=== PATIENT | male | born 1965 | race Caucasian/White ===

== ENCOUNTER 2024-06-08 07:45 | Inpatient (IN) ==
--- NOTE | 2024-05-26 15:40 | PAT Medication Instructions ---
Medication Instructions Date of Service May 26, 2024 Home Medications atorvastatin 40 mg tablet (Lipitor) 40 mg PO QAM celecoxib 200 mg capsule (Celebrex) 200 mg PO BID cyclobenzaprine 5 mg tablet 5 mg PO HS losartan 50 mg tablet 50 mg PO QAM metformin 500 mg tablet 500 mg PO BID omeprazole 20 mg capsule,delayed release 20 mg PO QAM oxycodone-acetaminophen 5 mg-325 mg tablet 1 - 2 tab PO HS PRN Pain ASK your surgeon for instructions celecoxib 200 mg capsule (Celebrex) 200 mg PO BID DO NOT take the morning of surgery losartan 50 mg tablet 50 mg PO QAM metformin 500 mg tablet 500 mg PO BID Take morning of surgery With a small sip of water, OTHERWISE NOTHING TO EAT OR DRINK AFTER MIDNIGHT: atorvastatin 40 mg tablet (Lipitor) 40 mg PO QAM omeprazole 20 mg capsule,delayed release 20 mg PO QAM Take evening before surgery cyclobenzaprine 5 mg tablet 5 mg PO HS metformin 500 mg tablet 500 mg PO BID oxycodone-acetaminophen 5 mg-325 mg tablet 1 - 2 tab PO HS PRN Pain (if needed) Other Notes If you have any questions please call us at [phone] or [phone] or [phone] or [phone]
--- NOTE | 2024-05-31 11:56 | Anesthesiology Consultation ---
Date of Service May 31, 2024 Assessment & Plan (1) Encounter for pre-operative examination: - A1c elevated at 9.1%, medical clearance is needed per discussion with Dr. Joya. Optimization form and PAT testing to be faxed to Dr. Otsi Lehman. Patient and surgeon's office made aware. - check BSG am DOS. Chart Review Chart Review: Pending: Refer to Additional Notes / Consult section and Patient seen in Pre Admission Testing Teaching & Discussion Pre-Anesthesia Teaching/Discussion Notes: Instructed NPO after midnight before surgery, except medications with 15 cc of water. Medication instructions provided according to the PAT guidelines. History Surgery Operation Date: 06/08/24 11:55 Proposed Procedures p L3-L4 Decompression and Fusion, Spinal Cord Monitoring - Alfonso Loving DO Height/Weight Height: 5 ft 8 in Weight: 98.3 kg Allergies Allergy/AdvReac Type Severity Reaction Status Date / Time No Known Allergies Allergy Verified 05/26/24 14:48 Medications Home Medications Medication Instructions Recorded Confirmed Last Taken atorvastatin 40 mg tablet (Lipitor) 40 mg PO QAM 05/26/24 05/26/24 Unknown celecoxib 200 mg capsule (Celebrex) 200 mg PO BID 05/26/24 05/26/24 Unknown cyclobenzaprine 5 mg tablet 5 mg PO HS 05/26/24 05/26/24 Unknown losartan 50 mg tablet 50 mg PO QAM 05/26/24 05/26/24 Unknown metformin 500 mg tablet 500 mg PO BID 05/26/24 05/26/24 Unknown omeprazole 20 mg capsule,delayed 20 mg PO QAM 05/26/24 05/26/24 Unknown release oxycodone-acetaminophen 5 mg-325 1 - 2 tab PO HS PRN Pain 05/26/24 05/26/24 Unknown mg tablet Past Medical History Medical History (Updated 05/31/24 @ 11:58 by Janis Ricardo PA-C) Diabetes NIDDM Dyslipidemia GERD (gastroesophageal reflux disease) controlled, stable per pt History of COVID-19 (2022) no hosp; resolved HTN (hypertension) controlled, stable per pt Hx of pneumothorax spontaneous pneumo when pt was in ; patient states it was repaired surgically Lumbar back pain Sleep apnea CPAP-compliant Patient denies h/o stroke, seizures, heart attack, heart failure, blood clots/DVTs or blood transfusions. Exercise / Class Metabolic Activity III < 4 Walking/Shop/Light housework (denies chest discomfort or shortness of breath with usual activities) Past Surgical History Surgical History (Updated 05/31/24 @ 11:58 by Janis Ricardo PA-C) History of laparoscopy -- states had a procedure for GERD; it was a "banding" done laparoscopically History of surgery Hx of colonoscopy Past Anesthesia History No Hx of Anesthesia Complications and No Family Hx of Anesthesia Complications History of PONV No Hx of PONV and No Hx of Motion Sickness Social History Smoking Status: Current every day smoker Smoking cigarettes per day: 20 per day- advised Do You Dip or Chew Tobacco: No Hx Alcohol Use: No Hx Substance Use: No substance use type: does not use Review of Systems Patient denies chest pain, shortness of breath, dyspnea on exertion, fever, chills, cough, wheezing, or palpitations. Physical Exam Vital Signs Vitals BP 151/77 P 90 TEMP 98.4 SP02 96% on RA RESP 18 Physical Patient resting comfortably in chair in no acute distress, alert and oriented, responding appropriately throughout visit Full cervical extension range of motion without pain TMD 3.5 finger breadths Mallampati Score 2 Dentition: several broken teeth, denies loose teeth, caps/crowns, implants or bridges Lungs: normal respiratory effort. Good air movement, clear throughout to auscultation, no adventitious breath sounds Cardiac: regular rate and rhythm, no murmurs noted Carotid arteries: negative bruit bilat Lab Results Anesthesia Preop Results Results Anesthesia Widget: WBC 10.67 K/ul (4.8-10.8) 05/31/24 Hgb 16.5 g/dl (14.0-18.0) 05/31/24 Hct 48.6 % (42.0-52.0) 05/31/24 Plt 227 K/uL (130-400) 05/31/24 PT 10.0 Seconds (9.0-12.0) 05/31/24 PTT 25 Seconds (21-31) 05/31/24 INR 0.9 (0.9-1.1) 05/31/24 HA1c 9.1 % (4.5-5.6) H 05/31/24 Urine Color Yellow 05/31/24 Urine Appearance Clear (Clear) 05/31/24 Urine pH 6.0 (4.5-7.5) 05/31/24 Urine Specific [place] 1.021 (1.000-1.030) 05/31/24 Urine Protein Negative (Negative) 05/31/24 Urine Glucose (UA) 3+ (Negative) H 05/31/24 Urine Ketones Trace (Negative) H 05/31/24 Urine Blood Negative (Negative) 05/31/24 Urine Nitrite Negative (Negative) 05/31/24 Urine Bilirubin Negative (Negative) 05/31/24 Urine Urobilinogen Negative (Negative) 05/31/24 Urine Leukocyte Esterase Negative (Negative) 05/31/24 Blood Type AB Positive 05/31/24 Antibody Screen NEGATIVE 05/31/24 Testing Laboratory Results 04/28/24 SODIUM: 139 POTASSIUM: 4.3 CHLORIDE: 103 CO2: 22 BUN: 14 CREATININE: 0.8 GLUCOSE: 136 Electrocardiogram Date: 05/04/24 NSR, rate 82 bpm Chest X-Ray Date: 05/31/24 No acute process.
[2024-06-08] MEDS: GABAPENTIN 300 MG CAP PO SCH (08:24)
[2024-06-08] MEDS: LR 60ML/HR IV SCH (08:24)
[2024-06-08] MEDS: LR 15ML/HR IV SCH (08:24)
[2024-06-08] MEDS: CeleBREX 200 MG CAP PO SCH (08:24)
[2024-06-08] MEDS ORDERED: ATROPINE SULFATE 0.1 MG/ML 10ML SYR IV PRN (08:36)
[2024-06-08] MEDS ORDERED: ePHEDrine sulfate 50 MG/ML AMP IV PRN (08:36)
[2024-06-08] MEDS ORDERED: DROPERIDOL 5 MG/2 ML VIAL IV PRN (08:36)
[2024-06-08] MEDS: ACETAMINOPHEN 500 MG TAB PO STA (08:45)
--- NOTE | 2024-06-08 08:50 | History & Physical Bridge Note ---
Date of Service June 08, 2024 History & Physical Bridge Note I have examined the patient, reviewed the History & Physical and in the interval since the performance of the History & Physical I have noted the following changes of clinical significance: no changes noted
--- NOTE | 2024-06-08 08:51 | History & Physical Report ---
Date of Service June 08, 2024 Assessment & Plan (1) Lumbar disc herniation with radiculopathy: Plan: L3-L4 decompression and fusion History of Present Illness Chief Complaint: Back and leg pain Primary Care Provider: Otis Lehman MD This is a 58-year-old male presents with chronic persistent back and leg pain after failing course of nonoperative care is here for surgical invention. Allergies Allergy/AdvReac Type Severity Reaction Status Date / Time No Known Allergies Allergy Verified 06/08/24 08:03 Home Medications Medication Instructions Recorded Confirmed Type atorvastatin 40 mg tablet (Lipitor) 40 mg PO QAM 05/26/24 06/08/24 History celecoxib 200 mg capsule (Celebrex) 200 mg PO BID 05/26/24 06/08/24 History cyclobenzaprine 5 mg tablet 5 mg PO HS 05/26/24 06/08/24 History losartan 50 mg tablet 50 mg PO QAM 05/26/24 06/08/24 History metformin 500 mg tablet 500 mg PO BID 05/26/24 06/08/24 History omeprazole 20 mg capsule,delayed 20 mg PO QAM 05/26/24 06/08/24 History release oxycodone-acetaminophen 5 mg-325 1 - 2 tab PO HS PRN Pain 05/26/24 06/08/24 History mg tablet Past Med/Surg History Problem List (Updated 06/08/24 @ 08:51 by Alfonso Loving DO) Lumbar disc herniation with radiculopathy Encounter for pre-operative examination Medical History (Updated 06/08/24 @ 08:51 by Alfonso Loving DO) Lumbar back pain Hx of pneumothorax spontaneous pneumo when pt was in ; patient states it was repaired surgically History of COVID-19 (2022) no hosp; resolved Sleep apnea CPAP-compliant GERD (gastroesophageal reflux disease) controlled, stable per pt Dyslipidemia HTN (hypertension) controlled, stable per pt Diabetes NIDDM Surgical History History of surgery History of laparoscopy -- states had a procedure for GERD; it was a "banding" done laparoscopically Hx of colonoscopy Social History Smoking Status: Current every day smoker Tobacco Type: Cigarettes Cigarettes Per Day: 20 per day- advised; Second Hand Exposure: No; Do You Dip or Chew Tobacco: No; Tobacco Cessation Education Requested by Patient: No Hx Alcohol Use: No Hx Substance Use: No Preferred Language: Micronesian Communication Ability: Effective [employer] Counter Person Required: No Beliefs That Will Affect Care: None Current Living Situation: Significant Other Other Information That Helps Us Care for You: No Feels Safe at Home: Yes Safety Concerns: Feels Safe At This Time Assistive Devices: CPAP Physical Exam Physical Exam: Patient is alert and oriented Heart regular in rhythm Lungs clear Results & Data Results & Data Vital Signs (Past 12 Hours) Vital Signs Pulse Resp BP Pulse Ox O2 Del Method 06/08/24 08:07 Room Air 06/08/24 08:07 94 H 26 H 173/78 H 97 Room Air
[2024-06-08] MEDS ORDERED: MIDAZOLAM HCL 1 MG/ML 2ML VIAL ONE (09:07)
[2024-06-08] MEDS ORDERED: fentaNYL citrate PF 100 MCG/2 ML VIAL ONE (09:08)
[2024-06-08] MEDS ORDERED: PROPOFOL IV EMULSION 10 MG/ML 20 ML VIAL IV ONE (09:20)
[2024-06-08] MEDS ORDERED: ROCURONIUM BROMIDE 10 MG/ML 5 ML VIAL IV ONE ×4 (09:20→10:16)
[2024-06-08] MEDS ORDERED: LIDOCAINE 2% 20 MG/ML 5 ML SYR IV ONE (09:20)
[2024-06-08] MEDS ORDERED: KETAMINE HCL 10MG/ML SYR ONE (09:20)
[2024-06-08] MEDS: ceFAZolin 2000MG 2,000 MG/15 ML SYR IV SCH ×2 (09:30→17:12)
[2024-06-08] MEDS ORDERED: DEXAMETHASONE SOD INJ 4 MG/ML VIAL ONE (09:41)
[2024-06-08] MEDS: BUPIVACAINE/EPINEPHRINE 0.25% 1:200,000 30 ML VIAL ONE (09:58)
[2024-06-08] MEDS ORDERED: diphenhydrAMINE 50 MG/ML VIAL ONE (09:58)
[2024-06-08] MEDS ORDERED: ONDANSETRON INJ 2 MG/ML 2 ML VIAL ONE (09:58)
[2024-06-08] MEDS ORDERED: SUGAMMADEX SODIUM 200 MG/2 ML VIAL IV ONE (10:19)
[2024-06-08] MEDS: ceFAZolin 330 MG/ML 1 GM VIAL ONE (10:28)
[2024-06-08] MEDS: FLOSEAL HEMOSTATIC MATRIX 10ML TOP ONE (10:29)
--- NOTE | 2024-06-08 10:42 | Operative Report ---
Post Operative Report Pre & Post Diagnosis Operation Date: 06/08/24 09:10 Pre-Op Diagnosis: Lumbar Disc Herniation with Radiculopathy Post-Op Diagnosis: Lumbar Disc Herniation with Radiculopathy I identified the patient and participated in the time-out.: Yes Procedure Operation Date: 06/08/24 09:1, actual procedure: #1 lumbar decompression with medial facetectomies foraminotomies L3-L4. #2 posterior spinal fusion L3-L4. #3 placed posterior instrumentation L3-L4. #4 interbody fusion L3-L4. #5 this respire a 15 x 26 mm L3-L4 per #6 placement locally harvested morselized autograft posterior gutters. Over 7 placement of infuse collagen sponge, with corresponding graft in the posterior lateral gutters and Morpheus bone graft in the interbody space. #8 placement of versa wrap on the exposed dura. Surgeon Alfonso Loving, DO Oil Well Pumper Waleska Marshall Estimated Blood Loss 100 Findings See Below The patient is 5 foot 8 weighing over 90 kg and a BMI in excess of 32. Patient is already absent contribute to significant technical difficulty with positioning exposure and the procedure itself had at least 50% increased operative time. Specimens None Indications This is a 4-year-old male presents above his diagnosis of failed course of nonoperative care is here for surgical invention. Description of Procedure Patient met with identified informed consent obtained. Patient was then taken to the operative suite underwent intubation placed in a prone position on the Jose Alberto table without the Andre frame. All bony promises well-padded eyes inspected to ensure no external approximately Freda. This would lower size prepped and draped no sterile fashion. Sharp dissection with assistance of Bovie cautery performed down to and exposing the lamina and transverse processes of L3-L4. From caudal to cephalad fashion complete laminectomy of L3 was performed including bilateral medial facetectomies and foraminotomies addressing severe spinal stenosis. This included removal of massive foraminal disc herniation occupying the left neural foramen and extraforaminal space. After complete decompression by She was replaced L3-L4 bilaterally with assistance of fluoroscopy and the process maxwell placed. By way of a transforaminal approach on the left complete discectomy of L3-L4 was performed endplates got a distal cortical bleeding bone and a 15 x 26 mm Spira cage filled with Morpheus bone graft out the position. The rods were then compressed and locked into final position bilaterally. The transverse processes of L3-L4 protrusive cortical bleeding bone. Infuse collagen sponge, with gross and local autograft placed in posterior gutters. Versa wrap was placed along the exposed dura and a 15 round LALI drain inserted. Incision was then closed with 1 Vicryl and fascia 2-0 Vicryl subcutaneously and 4 Monocryl for final skin closure. Steri-Strips dressing young noah. Patient waken taken to PACU stable condition. Please note spinal cord monitoring was utilized at the procedure no changes noted. Waleska Marshall was present out the entire procedure and felt the patient positioning complex portion of the surgery and fascial closure. Im ordering 20 grams of [place] Collagen Powder (TxCell [id number]) to treat an incision wound that was caused by a spine procedure. The incision is approximately 2 cm(W) x 4 cm(L) into the joint (D) in size and is a full thickness wound. [place] collagen comes in 1 gram packets so 20 packets were ordered. Given the size of the wound, with light to moderate exudate I chose to order a 20 day supply. The patient will be provided instructions for proper application of the collagen wound kit. The patient will be asked to apply the collagen powder daily and then cover it with sterile dressings dispensed. Collagen was selected as I expect the collagen to attract monocytes and fibroblasts, act as a sacrificial substrate for MMPs, and ultimately proved a matrix for tissue and vessel growth. The collagen will act as a primary dressing in this scenario. It is medically necessary for proper healing of these wounds to improve bioavailability and contact with each wound surface, this is also to help prevent infection of wounds and promote healing ultimately leading to a better healing outcome and limit the risk of infection. I attest to the content of the Intraoperative Record and any orders documented therein. Any exceptions are noted below.
[2024-06-08] MEDS: HYDROmorphone INJ 2 MG/ML SYR/VIAL IV PRN ×2 (11:16→11:45)
--- NOTE | 2024-06-08 11:41 | Fluoroscopy Report ---
FL lumbar spine 2-3V CLINICAL HISTORY: L3-L4 DECOMPRESSION AND FUSION TECHNIQUE: 2 views were obtained with the C-arm in the OR with the above procedure. Total fluoroscopy time was 14.8 seconds. Radiation dose was 11.73 mGy. Comparison: None available at the time of this dictation. FINDINGS/IMPRESSION: Intraoperative images were obtained of L3-L4 decompression fusion. Please correlate with intraoperative fluoroscopy and operative report. ACT 112: Negative or not required by law. Electronically signed by: Edvin Hall M.D. 06/08/2024 11:39 AM
[2024-06-08] MEDS ORDERED: diphenhydrAMINE Capsule 25 MG CAP PO PRN (13:14)
[2024-06-08] MEDS ORDERED: PHARMACY GLYCEMIC MGMT CONSULT PRN (13:14)
[2024-06-08] MEDS ORDERED: METOCLOPRAMIDE HCL INJ 5 MG/ML 2 ML VIAL IV PRN (13:14)
[2024-06-08] MEDS ORDERED: hydrOXYzine HCl 25 MG TAB PO PRN (13:14)
[2024-06-08] MEDS ORDERED: PROMETHAZINE 12.5 MG/50.5 ML BAG IV PRN (13:14)
[2024-06-08] MEDS ORDERED: SOD PHOSPHATE/SOD BIPHOSPHATE ENEMA 132 ML BTL PR PRN (13:14)
[2024-06-08] MEDS ORDERED: DO NOT ADMINISTER FLU VACCINE PRN (13:14)
[2024-06-08] MEDS ORDERED: ONDANSETRON 4 MG OD TAB PO PRN (13:14)
[2024-06-08] MEDS ORDERED: DO NOT ADMINISTER PNEUMOCOCCAL VACCINE PRN (13:14)
[2024-06-08] MEDS ORDERED: MAGNESIUM HYDROXIDE SUSP 30 ML UDC PO PRN (13:14)
[2024-06-08] MEDS ORDERED: NALOXONE HCL 0.4 MG/1 ML VIAL/CARP IV PRN (13:14)
[2024-06-08] MEDS ORDERED: ALUMINUM/MAGNESIUM SUSP 30 ML UDC PO PRN (13:14)
[2024-06-08] MEDS ORDERED: HYDROmorphone INJ 0.5 MG/0.5 ML SYR IV PRN (13:14)
[2024-06-08] MEDS ORDERED: bisacodyL 10 MG SUPP PR PRN (13:14)
[2024-06-08] MEDS ORDERED: FAMOTIDINE 20 MG TAB PO PRN (13:14)
[2024-06-08] MEDS ORDERED: ACETAMINOPHEN 500 MG TAB PO PRN (13:14)
[2024-06-08] MEDS ORDERED: ONDANSETRON INJ 2 MG/ML 2 ML VIAL IV PRN (13:14)
[2024-06-08] MEDS: HYDROmorphone INJ 2 MG/ML SYR/VIAL ONE (13:23)
--- NOTE | 2024-06-08 13:26 | Anesthesiology Progress Note ---
Date of Service June 08, 2024 Anesthesia Post Procedure Vital Signs Vital Signs: Temp Pulse Pulse Resp BP BP Pulse Ox 06/08/24 12:45 94 H 16 159/81 H 96 06/08/24 12:30 37.1 C 96 H 15 157/78 H 96 06/08/24 12:20 103 H 14 139/88 97 06/08/24 12:10 96 H 13 153/82 H 95 06/08/24 12:00 96 H 16 157/88 H 97 06/08/24 11:50 93 H 16 163/105 H 97 06/08/24 11:40 97 H 12 171/87 H 98 06/08/24 11:35 101 H 18 181/96 H 100 06/08/24 11:25 98 H 17 163/92 H 94 06/08/24 11:15 95 H 15 157/76 H 95 06/08/24 11:07 36.6 C 100 H 16 152/70 H 95 06/08/24 08:07 06/08/24 08:07 94 H 26 H 173/78 H 97 O2 Del Method O2 Flow Rate 06/08/24 12:45 Nasal Cannula 3 06/08/24 12:30 Nasal Cannula 3 06/08/24 12:20 Nasal Cannula 3 06/08/24 12:10 Nasal Cannula 3 06/08/24 12:00 Nasal Cannula 3 06/08/24 11:50 Nasal Cannula 3 06/08/24 11:40 Nasal Cannula 3 06/08/24 11:35 Oxymask 10 06/08/24 11:25 Oxymask 10 06/08/24 11:15 Oxymask 10 06/08/24 11:07 Oxymask 10 06/08/24 08:07 Room Air 06/08/24 08:07 Room Air Pain Intensity Back: Pain Intensity: 10 Transfer of Care Handoff Completed per policy Notes Mental Status: alert / awake / arousable and participated in evaluation Nausea / Vomiting: adequately controlled Pain: adequately controlled Airway Patency, RR, SpO2: stable & adequate BP & HR: stable & adequate Hydration State: stable & adequate Anesthetic Complications: no major complications apparent and Pt Satisfied with anesthetic care
[2024-06-08] MEDS: oxyCODONE HCL IR 5 MG TAB (IMMEDIATE RELEASE) PO PRN (13:28)
--- NOTE | 2024-06-08 13:32 | Consultation ---
Date of Consultation June 08, 2024 Assessment & Plan (1) Lumbar disc herniation with radiculopathy: (2) Status post lumbar surgery: Post op day# 0 S/P L3-L4 decompression and fusion by Dr Fabienne BOTELLO#100ml Pain management per ortho Wound management per ortho PT/OT as appropriate DVT prophylaxis per ortho, SCDs Incentive spirometry Monitor H&H for acute blood loss anemia; Pre-op Hgb: 16.5 per chart review (3) Diabetes mellitus, type II: A1c: 9.1 on 05/31/24, Was 7.9 on 02/03/24 Hold home metformin. Patient previously on Trulicity however states has been unable to get from pharmacy Glycemic pharmacist on board, appreciate glycemic management (4) HTN (hypertension): BP: 161/77 Dose home losartan now and continue daily (5) Dyslipidemia: Continue atorvastatin (6) COPD (chronic obstructive pulmonary disease): No signs exacerbation Continue home inhaler Albuterol neb prn (7) JUSTYN (obstructive sleep apnea): CPAP HS (8) Tobacco use: Nicotine patch Smoking cessation encouraged DVT Prophylaxis SCDs Follows with Dr Dominik GRAY for routine care Pt was seen and care coordinated with Dr Wise. See addendum Thank you for this consultation. We will follow the patient with you during their hospital stay. You can reach a member of the [facility] Hospitalist Team 25/05 via [facility] Supervising Physician Co-Signing Physician Notes delayed entry date of service noted above Attending Addendum: Case reviewed with the advanced practitioner. I have personally performed a history and physical examination on the patient. I have reviewed the advanced practitioner's documentation on the date of service referenced in note, and I agree with, and take responsibility for the plan of care. please refer to her notes for full details patient seen and examined, records reviewed by myself as well on exam, patient seen resting in bed, comfortable states pain over surgical is adequately controlled no chest pain, dyspnea, palpitations, dizziness, shortness of breath no other symptoms VS noted and reviewed oriented x 3 , not in distress, speaks in sentences with no effort nor accessory muscle use normal rate, regular rhythm, no murmurs clear breath sounds bilaterally non distended, soft, nontender no bipedal edema, erythema, warmth no neuro deficits all labs, imaging noted and reviewed ASSESSMENT AND PLAN s/p Lumbar Spine surgery DM 2, HTN, COPD Insulin sliding scale continue usual Losartan monitor BP labs in AM other diagnoses and plan of care as per advanced practitioner's notes Nato Wise MD History of Present Illness Requesting Physician: Dr Loving Reason for Consultation: Post op medical management Attending Physician: Alfonso Loving, History of Present Illness Patient is 58 year old male with PMH HTN, dyslipidemia, DM II, COPD, JUSTYN, tobacco use seen in medical consultation s/p L3-L4 decompression and fusion today by Dr Loving. Post-op patient reports having back pain. States feels "a little loopy". He is eating Jello. Has not urinated yet since coming to floor. Denies N/V/D/C, EMMANUEL, dizziness, syncope, vision changes, neck pain, CP, SOB, palpitations, cough, rhinorrhea, abdominal pain, extremity weakness, extremity edema, rashes, urinary symptoms. Allergies Allergy/AdvReac Type Severity Reaction Status Date / Time No Known Allergies Allergy Verified 06/08/24 08:03 Home Medications Medication Instructions Recorded Confirmed Type losartan 50 mg tablet 50 mg PO QAM 05/26/24 06/08/24 History metformin 500 mg tablet 500 mg PO BID 05/26/24 06/08/24 History omeprazole 20 mg capsule,delayed 20 mg PO QAM 05/26/24 06/08/24 History release oxycodone-acetaminophen 5 mg-325 1 - 2 tab PO HS PRN Pain 05/26/24 06/08/24 History mg tablet atorvastatin 80 mg tablet 80 mg PO DAILY 06/08/24 06/08/24 History fluticasone fur. 100 mcg-umeclid 1 inh inhalation DAILY 06/08/24 06/08/24 History 62.5 mcg-vilant 25 mcg inhalat.powder (Trelegy Ellipta) oxycodone 5 mg tablet 5 mg PO Q6H PRN pain #30 tabs 06/08/24 Rx tramadol 50 mg tablet 50 mg PO Q6H PRN pain, moderate 06/08/24 Rx #30 tabs Patient History Medical History Lumbar back pain Hx of pneumothorax spontaneous pneumo when pt was in ; patient states it was repaired surgically History of COVID-19 (2022) no hosp; resolved Sleep apnea CPAP-compliant GERD (gastroesophageal reflux disease) controlled, stable per pt Dyslipidemia HTN (hypertension) controlled, stable per pt Diabetes NIDDM Surgical History History of surgery History of laparoscopy -- states had a procedure for GERD; it was a "banding" done laparoscopically Hx of colonoscopy Family History Mother Breast cancer Stroke Hypertension Father Diabetes Heart disease Hypertension Social History Smoking Status: Current every day smoker Tobacco Type: Cigarettes Cigarettes Per Day: 20 per day- advised; Second Hand Exposure: No; Do You Dip or Chew Tobacco: No; Tobacco Cessation Education Requested by Patient: No Hx Alcohol Use: No Hx Substance Use: No Preferred Language: Danish Communication Ability: Effective Barmaid Required: No Beliefs That Will Affect Care: None Current Living Situation: Significant Other Other Information That Helps Us Care for You: No Feels Safe at Home: Yes Safety Concerns: Feels Safe At This Time Assistive Devices: CPAP Review of Systems Review of Systems: All systems reviewed & are unremarkable except as noted in HPI & below Physical Exam Physical Exam: General: no distress, obese Head: normocephalic, atraumatic Eyes: conjunctiva non-injected, anicteric ENT: normal inspection external ears, nose, mucous membranes moist Neck: supple, trachea midline Lungs: clear, no respiratory distress, no wheezing/rhonchi/rales CV: RRR, no murmur, no pretibial edema Abd: protuberant, normal BS, soft, non-tender Back: surgical dressing in place, LALI drain in place with serosanguineous drainage Ext: no cyanosis, no calf tenderness; bilateral pedal pushes and pulls intact, sensation to light touch intact Neuro: A&O x 3, no focal deficits noted, normal affect Skin: warm, dry Results & Data Vital Signs (Past 12 Hours) Vital Signs Temp Pulse Pulse Resp BP BP Pulse Ox 06/08/24 12:45 94 H 16 159/81 H 96 06/08/24 12:30 37.1 C 96 H 15 157/78 H 96 06/08/24 12:20 103 H 14 139/88 97 06/08/24 12:10 96 H 13 153/82 H 95 06/08/24 12:00 96 H 16 157/88 H 97 06/08/24 11:50 93 H 16 163/105 H 97 06/08/24 11:40 97 H 12 171/87 H 98 06/08/24 11:35 101 H 18 181/96 H 100 06/08/24 11:25 98 H 17 163/92 H 94 06/08/24 11:15 95 H 15 157/76 H 95 06/08/24 11:07 36.6 C 100 H 16 152/70 H 95 06/08/24 08:07 06/08/24 08:07 94 H 26 H 173/78 H 97 O2 Del Method O2 Flow Rate 06/08/24 12:45 Nasal Cannula 3 06/08/24 12:30 Nasal Cannula 3 06/08/24 12:20 Nasal Cannula 3 06/08/24 12:10 Nasal Cannula 3 06/08/24 12:00 Nasal Cannula 3 06/08/24 11:50 Nasal Cannula 3 06/08/24 11:40 Nasal Cannula 3 06/08/24 11:35 Oxymask 10 06/08/24 11:25 Oxymask 10 06/08/24 11:15 Oxymask 10 06/08/24 11:07 Oxymask 10 06/08/24 08:07 Room Air 06/08/24 08:07 Room Air
[2024-06-08] MEDS ORDERED: ALBUTEROL 0.083% NEBU SOLN 3 ML VIAL NEB PRN (13:46)
--- NOTE | 2024-06-08 14:12 | Pharmacy Report ---
Pharmacy Glycemic Short Note 2 - Date of Service June 08, 2024 - Glycemic Short BSG Results (Last 24 hours): 06/08/24 06/08/24 08:03 11:10 POC Glucose 188 H 166 H OUTPATIENT ANTIDIABETIC REGIMEN: * metformin 500mg BID * Trulicity 1.5mg every week? * HbA1c 9.1% (05/31/24) ASSESSMENT: * Lexa is a 58 YOM admitted status post spinal decompression/fusion. Pharmacy has been consulted to assist with glycemic management while inpatient. * Fasting BSG this AM slightly elevated, he appears to have received 8mg IV dexamethasone preoperatively, will give 0.2units/kg basal insulin now and then add a scale at bedtime up to a weight based stress of 2. * Dexamethasone 6mg IV x3 days ordered starting tomorrow. * Novolog initiated at a weight based stress of 2.5 PLAN FOR INPATIENT GLYCEMIC CONTROL: * Hold outpatient oral diabetes medications * Basal insulin * Lantus 20 units SQ now x1 * Lantus 0-20 units SQ HS (see eMAR for additional details) * Bolus insulin * NovoLog per scale ACHS or Q6hrs while NPO * Goal Range: Low 110 mg/dL - High 140 mg/dL * Correction Factor: 20 mg/dL/unit * Nutritional / Prandial insulin per carb ratio of 1 unit per 6 grams CHO consumed
[2024-06-08] MEDS: LACTATED RINGER'S 1,000 ML IV SCH (15:00)
[2024-06-08] MEDS: LOSARTAN POTASSIUM 50 MG TAB PO ONE (15:05)
[2024-06-08] MEDS: NICOTINE 21 MG/24 HR TDSY TD SCH (15:05)
[2024-06-08] MEDS: HYDROmorphone INJ 1 MG/ML SYRINGE IV PRN (15:31)
[2024-06-08] MEDS: INSULIN ASPART PER UNIT CHARGE SC SCH (15:35)
[2024-06-08] MEDS: LANTUS PER UNIT CHARGE SC ONE (15:35)
[2024-06-08] MEDS: ACETAMINOPHEN 1,000 MG/100 ML VIAL IV PRN (17:16)
[2024-06-08] MEDS ORDERED: CYCLOBENZAPRINE HCL 5 MG TAB PO SCH (21:00)
[2024-06-08] MEDS: DOCUSATE SODIUM/SENNA 50/8.6MG TAB PO SCH (21:18)
[2024-06-08] MEDS: LANTUS PER UNIT CHARGE SC SCH (21:47)
[2024-06-08] MEDS: LORazepam 0.5 MG in SYRINGE 0.25 ML IV PRN (21:48)
[2024-06-09] MEDS: POLYETHYLENE (MIRALAX) 17 GM PACK PO SCH (05:56)
[2024-06-09 06:47] LABS: Basophils # (auto) 0.01 K/uL (0.00-0.20); Basophils % (auto) 0.1 %; Eosinophils # (auto) 0.01 K/uL (0.00-0.50); Eosinophils % (auto) 0.1 %; Hematocrit (blood only) 41.5 % (42.0-52.0); Hemoglobin 13.7 g/dl (14.0-18.0); Immature Granulocytes # (auto) 0.11 K/uL (0.01-0.20); Immature Granulocytes % (auto) 0.6 %; Lymphocytes # (auto) 1.87 K/uL (1.20-3.40); Lymphocytes % (auto) 10.5 %; Mean Corpuscular Hemoglobin 31.1 pg (25.0-34.0); Mean Corpuscular Volume 94.3 fL (80.0-100.0); Mean Platelet Volume 9.7 fL (9.4-12.4); Monocytes % (auto) 7.3 %; Neutrophils # (auto) 14.56 K/uL (1.40-6.50); Neutrophils % (auto) 81.4 %; Platelet Count 208 K/uL (130-400); RDW Coefficient of Variation 12.3 % (11.5-14.5); RDW Standard Deviation 42.8 fL (36.4-46.3); White Blood Count 17.86 K/ul (4.8-10.8)
[2024-06-09 07:07] LABS: Calcium 8.7 mg/dl (8.6-10.3); Est GFR (African American) 113.1 ml/min; Est GFR (Non-African American) 97.6 ml/min; Potassium 4.4 mmol/L (3.5-5.1)
--- NOTE | 2024-06-09 08:13 | Orthopedic Progress Note ---
Date of Service June 09, 2024 Assessment & Plan (1) Lumbar disc herniation with radiculopathy: Plan: At this point we will continue physical therapy monitor his LALI output of the discharge home the next few days. Admission and Anticipated Discharge Date Admission Date: June 08, 2024 Subjective Back pain controlled leg symptoms markedly improved Physical Exam Physical Exam: Patient is quite comfortable. Discussed with testing. Results & Data Vital Signs (Past 12 Hours) Vital Signs Temp Pulse Resp BP Pulse Ox O2 Del Method 06/09/24 07:09 36.7 C 66 16 138/80 96 Room Air 06/09/24 04:11 36.6 C 66 18 111/67 95 Room Air 06/08/24 23:59 36.6 C 69 20 143/74 H 96 CPAP Queries Orthopedic Spine Obesity: Yes
[2024-06-09] MEDS: LOSARTAN POTASSIUM 50 MG TAB PO SCH (08:14)
[2024-06-09] MEDS: UMECLIDINIUM/VILANTEROL 62.5/25MCG 7 PUFFS/INHALER INH SCH (08:14)
[2024-06-09] MEDS: FLUTICASONE FUROATE 100MCG 14 PUFFS/INHALER INH SCH (08:14)
[2024-06-09] MEDS: ATORVASTATIN 40 MG TAB PO SCH (08:15)
[2024-06-09] MEDS: PANTOprazole 40 MG TAB PO SCH (08:15)
[2024-06-09] MEDS: dexAMETHasone 6 MG in SYRINGE 0 ML IV SCH (08:52)
[2024-06-09] MEDS: LANTUS PER UNIT CHARGE SC SCH (08:57)
[2024-06-09] MEDS ORDERED: ATORVASTATIN 40 MG TAB PO SCH ×2 (09:00)
--- NOTE | 2024-06-09 14:22 | Hospitalist Progress Note ---
Date of Service June 09, 2024 Assessment & Plan (1) Lumbar disc herniation with radiculopathy: (2) Status post lumbar surgery: Plan: Post op day# 1 S/P L3-L4 decompression and fusion by Dr Fabienne BOTELLO#100ml Drain output 110ml Pain/wound/dvt px management per ortho PT/OT as appropriate c/w Incentive spirometry Acute blood loss anemia: Preoperative hemoglobin of 16.5, postoperatively 13.7, patient with no chest pain/palpitation/dizziness. Likely perioperative blood loss with dilutional component from perioperative IV fluid use. Continue to monitor H&H. No need for blood transfusion for now. (3) Diabetes mellitus, type II: Plan: A1c: 9.1 on 05/31/24, Was 7.9 on 02/03/24 Hold home metformin. Patient previously on Trulicity however states has been unable to get from pharmacy Glycemic pharmacist on board, appreciate glycemic management follow up w/ diabetic clinic or pcp for ongoing management. (4) HTN (hypertension): Plan: BP: 161/77 Dose home losartan now and continue daily (5) Dyslipidemia: Plan: Continue atorvastatin (6) COPD (chronic obstructive pulmonary disease): Plan: No signs exacerbation Continue home inhaler Albuterol neb prn (7) JUSTYN (obstructive sleep apnea): Plan: CPAP HS (8) Tobacco use: Plan: Nicotine patch Smoking cessation encouraged DVT Prophylaxis: SCDs Follows with Dr Dominik GRAY for routine care Thank you for this consultation. We will follow the patient with you during their hospital stay. You can reach a member of the [facility] Team 25/05 via [facility] Admission and Anticipated Discharge Date Admission Date: June 08, 2024 Subjective Patient was seen and examined at bedside. Patient was lying in bed, on room air, NAD, resting comfortably. Patient reports improvement in his LLE radicular signs and symptoms, reports operative site pain under control with pain medication. Patient reports eating okay, has not moved bowels yet. Physical Exam Physical Exam: General: no distress, obese Head: normocephalic, atraumatic Eyes: conjunctiva non-injected, anicteric ENT: normal inspection external ears, nose, mucous membranes moist Neck: supple, trachea midline Lungs: clear, no respiratory distress, no wheezing/rhonchi/rales CV: RRR, no murmur, no pretibial edema Abd: protuberant, normal BS, soft, non-tender Back: surgical dressing in place, LALI drain in place with serosanguineous drainage Ext: no cyanosis, no calf tenderness; bilateral pedal pushes and pulls intact, sensation to light touch intact Neuro: A&O x 3, no focal deficits noted, normal affect Skin: warm, dry Results & Data Results & Data Vital Signs (Past 12 Hours) Vital Signs Temp Pulse Resp BP Pulse Ox O2 Del Method 06/09/24 14:07 36.5 C 81 18 171/79 H 94 Room Air 06/09/24 07:09 36.7 C 66 16 138/80 96 Room Air 06/09/24 04:11 36.6 C 66 18 111/67 95 Room Air
[2024-06-09] MEDS: traMADol HCL 50 MG TABLET PO PRN (20:06)
[2024-06-09] MEDS: LORazepam 0.5 MG TAB PO PRN (23:44)
[2024-06-10 06:22] LABS: Hematocrit (blood only) 41.3 % (42.0-52.0); Mean Corpuscular Hemoglobin 31.3 pg (25.0-34.0); Mean Corpuscular Hgb Conc 33.9 g/dL (32.0-36.0); Mean Corpuscular Volume 92.2 fL (80.0-100.0); Mean Platelet Volume 9.7 fL (9.4-12.4); Platelet Count 210 K/uL (130-400); RDW Coefficient of Variation 12.3 % (11.5-14.5); RDW Standard Deviation 41.6 fL (36.4-46.3); Red Blood Count 4.48 M/uL (4.70-6.10); White Blood Count 15.25 K/ul (4.8-10.8)
[2024-06-10 06:57] VITALS: RESP 18
[2024-06-10 08:49] VITALS: BP 153/78; PULSE 100; TEMP 98.4; O2SAT 97
--- NOTE | 2024-06-10 11:11 | Pharmacy Report ---
Pharmacy Glycemic Short Note 2 - Date of Service June 10, 2024 - Glycemic Short BSG Results (Last 24 hours): 06/09/24 06/09/24 06/09/24 11:32 16:43 21:14 POC Glucose 136 H 273 H 142 H 06/10/24 07:41 POC Glucose 108 H OUTPATIENT ANTIDIABETIC REGIMEN: * metformin 500mg BID * Trulicity 1.5mg every week? * HbA1c 9.1% (05/31/24) ASSESSMENT: 06/11 * Lexa received 34 units of insulin yesterday (15 were basal) * POD #1 day (11/04) dexamethasone 6mg IV daily * Fasting BSG this AM within goal range, continue current basal regimen * Carbohydrate ratio tightened slightly due to elevated postprandial level before dinner yesterday. 06/10: * Lexa is a 58 YOM admitted status post spinal decompression/fusion. Pharmacy has been consulted to assist with glycemic management while inpatient. * Fasting BSG this AM slightly elevated, he appears to have received 8mg IV dexamethasone preoperatively, will give 0.2units/kg basal insulin now and then add a scale at bedtime up to a weight based stress of 2. * Dexamethasone 6mg IV x3 days ordered starting tomorrow. * Novolog initiated at a weight based stress of 2.5 PLAN FOR INPATIENT GLYCEMIC CONTROL: * Hold outpatient oral diabetes medications * Basal insulin * Lantus 15 units SQ daily * Bolus insulin * NovoLog per scale ACHS or Q6hrs while NPO * Goal Range: Low 110 mg/dL - High 140 mg/dL * Correction Factor: 20 mg/dL/unit * Nutritional / Prandial insulin per carb ratio of 1 unit per 5 grams CHO consumed
--- NOTE | 2024-06-10 11:13 | Discharge Summary ---
Date of Service June 10, 2024 Admission HPI Per Admitting Provider This is a 58-year-old male presents with chronic persistent back and leg pain after failing course of nonoperative care is here for surgical invention. Principal Diagnosis Lumbar disc herniation with radiculopathy Discharge Data Allergies Allergy/AdvReac Type Severity Reaction Status Date / Time No Known Allergies Allergy Verified 06/08/24 08:03 Consultations 06/08/24 13:14 Consult Hospitalist Routine Procedures Performed Operation Date: 06/08/24 09:10 Actual Procedures p L3-L4 Decompression and Fusion, Spinal Cord Monitoring(Not Applicable) - Alfonso Loving DO Ordered Studies 06/08/24 09:10 FL lumbar spine 2-3V Routine Hospital Course (1) Lumbar disc herniation with radiculopathy: Patient 1 lumbar depression fusion tolerates well staying the orthopedic floor postoperatively postoperatively progressed appropriate. Marked improvement of his pain. LALI drain decreased appropriate. Excellent strength testing. Simply discharged home. Discharge orders instructions from the chart for further review. Total Time Total Time Spent Total Time Spent (In Minutes): 20 minutes Discharge Plan Discharge Items Patient Disposition: Home - Self-Care Reason For Visit: Lumbar Disc Herniation with Radiculopathy Discharge Diagnosis: Lumbar discrimination with radiculopathy Activity: As commented below Non-emergency contact: Primary Care Provider Call non-emergency contact if: you have any medication questions Follow-up/Referrals: Otis Lehman MD [Primary Care Provider] - Diet: Regular Addtl Attending Provider Instructions: ACTIVITY RECOMMENDATIONS: SELF CARE INSTRUCTIONS AFTER THORACIC/LUMBAR FUSIONS 1. You may walk to your tolerance. It is good exercise for your legs and back. Expect some back and intermittent leg aches and pains. 2. You may perform "counter-top" level activities (make a sandwich, martha with a project, etc.). 3. No bending or lifting of more than 10 pounds or back twisting of any nature (roll like a log when turning in bed). 4. You may ride in a car for 20-30 minutes at a time. No driving until after your first visit with your doctor. 5. Frequent changes of position and restricting sitting to 30 minutes at a time will help limit the amount of back spasms and stiffness you may experience. 6. You may discontinue the use of ambulatory aids (cane, crutches, etc.) once your strength and confidence allow. 7. You may event coordinator marketing and sales the shower and let water strike your incision when you arrive home at least once daily. Do not take a tub bath, sit in a hot tub or go into a swimming pool until after your first recheck in the office. SPECIAL CARE INSTRUCTIONS: VERY IMPORTANT TO READ AND REVIEW A. Your surgical incision has been closed with a cosmetic suture under the skin that will dissolve in about 6 weeks. In 14 days, you can use a pair of clean scissors and cut the suture that is left outside of the skin at the ends of your incision. 1. The small skin tapes can be removed 7 days after surgery if they have not fallen off by that point. 2. You may keep the wound open to air as much as possible to promote healing after post-op day number 5 unless told otherwise by your doctor. 3. If you think the wound looks like it is becoming infected (redness or worsening drainage) and/or you are experiencing fever, chill or worsening back pain and muscle spasms, contact the office so that we may evaluate you as soon as possible. B. Complications are uncommon, but please contact us if you have any signs or symptoms of: 1. wound infection (fever higher than 102.5 degrees F, redness, separation of wound, drainage, or increasing pain from the incision) 2. blood clots in legs (pain, swelling, redness and warmth in legs) 3. urinary tract infection (fever higher than 102.5 degrees F, burning upon urination or increased frequency of urination) 4. nerve problems (inability to walk on your toes or heels, numbness, loss of bowel or bladder control) 5. any other symptoms that concern you C. Please call the office at if you have any concerns or questions about your operation or recovery. D. No smoking! Smoking drastically decreases the chance of a solid fusion. E. Do not take any anti-inflammatory medications (Indocin, Advil, Motrin, Aspirin, Naprosyn, etc.) as these may inhibit the chance of a solid fusion. Tylenol is okay to take for pain. MANAGING PAIN AFTER SPINAL SURGERY 1. Narcotic medication is intended for short-term use and will be provided for surgical pain. Surgical pain usually lasts for a period of 4-6 weeks. Narcotic medication includes Percocet, Vicodin, Darvocet, Tylenol #3 or Lortab. 2. Longer-term pain is more appropriately treated with non-narcotic medication such as Tylenol ES. 3. Muscle spasm is not appropriately treated with narcotics. Muscle relaxers such as Soma, Flexeril or Skelaxin can be used along with Tylenol ES. 4. Remember that we all live with some "aches and pains". This is not unusual or uncommon after an injury or as we get older. a. Back pain is expected and may include muscle spasms for 4 to 6 weeks after surgery. The pain should gradually improve. If the pain worsens for no apparent reason, please contact the office. b. Intermittent leg pain may also be experienced and should not be concerned about unless it worsens for no apparent reason. If so, please contact the office. 5. We will provide appropriate medication within the normal guidelines of their prescribed use. We will also be very cautious and aware of potential abuse and extended duration of patients' medication needs. a. Pain medications are for your comfort and to assist with sleep and rest so that the tissue can heal. They are not provided in order to return to normal activity and should not be used through the day. To do so or worsening pain at night can result from ongoing tissue damage and d evelopment of tolerance to the prescribed medicine. 6. Please allow 2-3 days to process refills. Prescriptions will not be mailed but must be picked up at the office. FOLLOW UP VISIT: Keep your scheduled follow-up appointment. Any questions, please call the office at . Pending Studies at Discharge: No Stand-Alone Forms: My [facility], Smoking Cessation Medications and DC Order Prescriptions: New tramadol 50 mg tablet 50 mg PO Q6H PRN (Reason: pain, moderate) Qty: 30 0RF oxycodone 5 mg tablet 5 mg PO Q6H PRN (Reason: pain) Qty: 30 0RF lorazepam 0.5 mg Tablet 0.5 mg PO Q8H PRN (Reason: sleep) Qty: 20 0RF Continued losartan 50 mg Tablet 50 mg PO QAM metformin 500 mg Tablet 500 mg PO BID oxycodone-acetaminophen 5-325 mg Tablet 1 - 2 tab PO HS PRN (Reason: Pain) omeprazole 20 mg Capsule,Delayed Release(Dr/Ec) 20 mg PO QAM atorvastatin 80 mg tablet 80 mg PO DAILY Trelegy Ellipta 100-62.5-25 mcg blister with device 1 inh INHALATION DAILY Discontinued celecoxib [Celebrex] 200 mg Capsule 200 mg PO BID cyclobenzaprine [Flexeril] 5 mg Tablet 5 mg PO HS Discharge Orders: Discharge Order (Routine); Ordered 06/10/24 Ordered By: Alfonso Loving Admission Data Admit Date/Time: 06/08/24 10:45 Attending Provider: Alfonso Loving Admit Provider: Alfonso Loving Primary Care Provider: Otis Lehman Other Providers: Meme Reyes Other Interventions: Discharge Summary Assessment (RN) Last Done: 06/10/24 11:09
--- NOTE | 2024-06-10 12:18 | Hospitalist Progress Note ---
Date of Service June 10, 2024 Assessment & Plan (1) Lumbar disc herniation with radiculopathy: (2) Status post lumbar surgery: Plan: Post op day# 2 S/P L3-L4 decompression and fusion by Dr Fabienne BOTELLO#100ml Drain output 110ml Pain/wound/dvt px management per ortho PT/OT as appropriate c/w Incentive spirometry Acute blood loss anemia: Preoperative hemoglobin of 16.5, postoperatively 13.7, patient with no chest pain/palpitation/dizziness. Likely perioperative blood loss with dilutional component from perioperative IV fluid use. Continue to monitor H&H. No need for blood transfusion for now. (3) Diabetes mellitus, type II: Plan: A1c: 9.1 on 05/31/24, Was 7.9 on 02/03/24 Hold home metformin. Patient previously on Trulicity however states has been unable to get from pharmacy Glycemic pharmacist on board, appreciate glycemic management follow up w/ diabetic clinic or pcp for ongoing management. (4) HTN (hypertension): Plan: BP: 161/77 Dose home losartan now and continue daily (5) Dyslipidemia: Plan: Continue atorvastatin (6) COPD (chronic obstructive pulmonary disease): Plan: No signs exacerbation Continue home inhaler Albuterol neb prn (7) JUSTYN (obstructive sleep apnea): Plan: CPAP HS (8) Tobacco use: Plan: Nicotine patch Smoking cessation encouraged DVT Prophylaxis: SCDs Follows with Dr Dominik GRAY for routine care Thank you for this consultation. We will follow the patient with you during their hospital stay. You can reach a member of the [facility] Team 25/05 via [facility] Admission and Anticipated Discharge Date Admission Date: June 08, 2024 Subjective Patient was seen and examined at bedside. Patient was lying in bed, on room air, NAD, resting comfortably. Patient reports improvement in his LLE radicular signs and symptoms, reports operative site pain under control with pain medication. Patient reports eating okay, is moving bowels ok. Physical Exam Physical Exam: General: no distress, obese Head: normocephalic, atraumatic Eyes: conjunctiva non-injected, anicteric ENT: normal inspection external ears, nose, mucous membranes moist Neck: supple, trachea midline Lungs: clear, no respiratory distress, no wheezing/rhonchi/rales CV: RRR, no murmur, no pretibial edema Abd: protuberant, normal BS, soft, non-tender Back: surgical dressing in place, LALI drain in place with serosanguineous drainage Ext: no cyanosis, no calf tenderness; bilateral pedal pushes and pulls intact, sensation to light touch intact Neuro: A&O x 3, no focal deficits noted, normal affect Skin: warm, dry Results & Data Results & Data Vital Signs (Past 12 Hours) Vital Signs Temp Pulse Pulse Resp BP Pulse Ox O2 Del Method 06/10/24 11:09 36.9 C 100 H 70 18 153/78 H 97 06/10/24 08:45 36.9 C 100 H 18 153/78 H 97 Room Air 06/10/24 06:57 36.7 C 70 18 166/84 H 94 Room Air
== END 2024-06-10 12:34 | disposition home or self-care (01) | DRG 454 ==
LOC: ASU 07:45 → PACUINP 10:45 → 3E 13:12